=== PATIENT | female | born 1985 | race Hispanic/Latino ===

== ENCOUNTER 2023-11-09 02:29 | Emergency (ER) | payer SELFPAY ==
[2023-11-09] MEDS ORDERED: Acetaminophen 325 MG TAB ONE (05:12)
[2023-11-09 09:41] LABS: #Basophils 0.06 10x3/uL (0.0-0.2); %Basophils 0.8 % (0.0-1.0); %Eosinophils 3.2 % (0.0-10.0); %Lymphocytes 39.9 % (21.0-51.0); %Neutrophils 46.7 % (42.0-75.0); Hematocrit 41.1 % (36.0-47.0); Mean Corpuscular HGB CONC 34.1 g/dL (32.0-36.0); Mean Corpuscular Hemoglobin 30.5 pg (27.0-31.0); Mean Corpuscular Volume 89.5 fL (78.0-98.0); Mean Platelet Volume 10.4 fL (7.4-10.4); Platelet Count 282 10x3/uL (130-400); RBC Distribution Width 12.7 % (11.5-14.5); Red Blood Cell (RBC) Count 4.59 mill/uL (4.20-5.40)
[2023-11-09 11:09] LABS: ALT (SGPT) 179 U/L (8-55); AST (SGOT) 89 U/L (5-34); Albumin 3.6 g/dL (3.5-5.0); Alkaline Phosphatase 129 U/L (40-110); BUN (Urea Nitrogen) 10 mg/dL (7.0-18.7); Bilirubin, Total 0.3 mg/dL (0.2-1.2); Calc. Creatinine Clearance 0 mL/min (70-130); Calcium 9.5 mg/dL (7.8-10.44); Carbon Dioxide 22 mmol/L (22-29); Chloride 103 mmol/L (98-107); Estimated GFR 100; Glucose 182 mg/dL (70-105); Potassium 4.1 mmol/L (3.5-5.1); Protein, Total 7.5 g/dL (6.0-8.3); Sodium 135 mmol/L (136-145)
[2023-11-09 11:15] LABS: Anion Gap 14 mmol/L (10-20)
[2023-11-09 11:16] LABS: Troponin I Less than 0.010 ng/mL (< 0.028)
[2023-11-09 11:17] LABS: Globulin 3.9 g/dL (2.4-3.5)
[2023-11-09 11:23] LABS: BHCG - Serum Negative (NEGATIVE); Pregs Control Background? CLEAR/WHITE (CLR/WHITE); Pregs Control Bar Appear? YES (CONTROL BAR)
== END 2023-11-09 06:20 | disposition home or self-care (01) ==
LOC: ERS 02:29 → EDBD 02:29 → ERS 06:20
DX: R06.02 Shortness of breath (principal); R79.89 Other specified abnormal findings of blood chemistry; E11.65 Type 2 diabetes mellitus with hyperglycemia
CPT/HCPCS: 71045; 80053; 83880; 84484; 84703; 85025; 85379